=== PATIENT | female | born 1980 | race Caucasian/White ===

== ENCOUNTER 2020-02-18 09:03 | Emergency (ER) | payer BC, SELFPAY ==
[2020-02-18 09:07] VITALS: BP 135/82; PULSE 73; RESP 16; TEMP 36.6; O2SAT 100; BMI 24.7
--- NOTE | 2020-02-18 09:10 | W.ED.GENADLT ---
HPI - General Adult General: Chief complaint: General Medical Stated complaint: HIGH BP Time Seen by Provider: 02/18/20 09:10 Source: patient Mode of arrival: ambulatory Limitations: no limitations History of Present Illness: HPI narrative: Patient is a 39-year-old female who presents to ED today for evaluation of not feeling right . Patient tells me earlier this morning around 8 AM when she arrived to work she became dizzy and lightheaded and states she felt nauseous. She had one episode of vomiting. She tells me I just did not feel good . She does not seem to be able to elaborate on her symptoms much further than this and often responds I do not know to further questioning. She does tell me she has some mild pain to her epigastric region. She does not complain of chest pain, shortness of breath, or difficulty breathing. She does tell me she has had a previous RI 2 years ago. Her public affairs officer is Dr. El. She states upon arrival the dizziness and lightheadedness has subsided. Denies fevers, chills, body aches, headache, visual changes. Denies numbness, tingling, weakness to her extremities, facial droop, slurred speech. Onset (ago): hour(s) Associated symptoms: Reports nausea and vomiting (x 1); Deny chest pain, confusion, dyspnea, headache(s), malaise, rash, palpitations or syncope Review of Systems Const: Denies: fever(s), chills, body aches, change in appetite, change in weight, fatigue or malaise Eyes: Denies: change in vision, blurry vision, photophobia, floaters or seeing flashes Card: Denies: chest pain, palpitations, irregular heart rhythm, edema, swelling of feet/ankles, lightheadedness, syncope, pre-syncope, dyspnea on exertion, orthopnea, leg pain with exertion or acrocyanosis Resp: Denies: dyspnea, productive cough, non-productive cough, pain on inspiration, change in phlegm color, hemoptysis or chest congestion GI: Reports: abdominal pain, nausea and vomiting (x 1); Denies: diarrhea : Denies: flank pain, difficulty voiding, dysuria, urinary frequency, urinary urgency or urinary hesitancy Musc: Denies: neck pain, back pain, extremity pain, extremity swelling, joint pain or joint swelling Skin/Breast: Denies: rash Neuro: Reports: dizziness (subsided now); Denies: headache(s), numbness in extremities, weakness in extremities, sensory changes, lack of coordination, difficulty walking, vertigo, confusion, Slurred speech present or difficulty communicating thoughts [facility] ED PFSH: Medical History (Updated 02/18/20 @ 12:25 by NEVA Borges) Hyperlipidemia Surgical History (Updated 09/28/19 @ 17:47 by Raciel El MD) S/P coronary artery stent placement Family History Other Hypertension Myocardial infarction PAD (peripheral artery disease) Social History (Updated 02/18/20 @ 09:11 by Ish Brennan RN) Smoking and tobacco status: former smoker Alcohol intake: never Physical Exam Const: COMMON NORMALS: no acute distress, average body habitus, patient oriented x3, no limitations, healthy appearing, alert and well nourished ORIENTATION/CONSCIOUSNESS: Yes oriented to person, Yes oriented to place and Yes oriented to time HENMT: COMMON NORMALS: normocephalic and atraumatic HEAD & SCALP: normocephalic and atraumatic Neck/C-Spine: COMMON NORMALS: full ROM, no lymphadenopathy, supple and no meningeal signs Chest: COMMONS NORMALS: normal inspection of the chest and normal palpation of entire chest wall Resp: COMMON NORMALS: normal respiratory effort and clear to auscultation bilaterally AUSCULTATION: clear to auscultation bilaterally Cardio: COMMON NORMALS: regular rate and regular rhythm RATE: regular rate RHYTHM: regular rhythm GI: COMMON NORMALS: Normal to inspection, nondistended, normoactive bowel sounds present, Soft to palpation, non-tender, No hepatosplenomegaly present and no masses PALPATION: Yes Soft to palpation and Yes No hepatosplenomegaly present : COMMON NORMALS: Yes no CVA tenderness BLADDER/KIDNEY EXAM: Yes no CVA tenderness Back/Pelvis: COMMON NORMALS: no CVA tenderness and thoracic and lumbar spine normal to inspection Extremity: COMMON NORMALS: normal to inspection Neuro: COMMON NORMALS: patient oriented x3 SENSORIUM/ORIENTATION: Yes alert, Yes oriented to person, Yes oriented to place and Yes oriented to time MENINGEAL SIGNS: Yes no meningeal signs Skin: COMMON NORMALS: no rashes or lesions noted GENERAL SKIN EXAM: no rashes or lesions noted Course Vital Signs: Vital signs: Vital Signs Temperature 97.8 F 02/18/20 09:07 Pulse Rate 66 02/18/20 12:38 Respiratory Rate 16 02/18/20 12:38 Blood Pressure 119/64 02/18/20 12:38 Pulse Oximetry 100 02/18/20 12:38 MDM - General Adult MDM Narrative: Medical decision making narrative: Patient's vitals are completely stable and have been throughout her stay. Labs are non-concerning at this time. She has initial troponin of 6 with a delta of 0. Her EKGs show no ischemic changes. CXR is normal. She has a heart score of 3. Patient has seen her public affairs officer for almost identical symptoms previously. Recommend at this time that she follow-up with him as soon as possible for reevaluation. Strict return to ED precautions given. Lab Data: Labs: Lab Results 02/18/20 02/18/20 02/18/20 Range/Units 09:30 09:30 09:30 WBC 9.7 (4.0-10.0) 10^3/ uL RBC 4.66 (4.1-5.3) 10^6/u L Hgb 13.2 (11.5-15.3) g/dL Hct 40.7 (37.0-47.0) % MCV 87.3 (81-99) fL MCH 28.3 (28.0-34.0) pg MCHC 32.4 (30.0-36.0) g/dL RDW 12.3 (12.1-15.1) % Plt Count 312 (130-400) 10^3/c mm MPV 9.8 (7.4-10.4) fL Neut % (Auto) 69.1 % Lymph % (Auto) 22.9 % [place] % (Auto) 6.3 % Eos % (Auto) 0.9 % Baso % (Auto) 0.4 % Neut # (Auto) 6.68 (1.8-7.7) 10^3/u L Lymph # (Auto) 2.2 (0.8-4.8) 10^3/u L [place] # (Auto) 0.6 (0.2-0.9) 10^3/u L Eos # (Auto) 0.1 (0.0-0.8) 10^3/u L Baso # (Auto) 0.0 (0.0-0.1) 10^3/u L Nucleated RBC % (a uto) 0 % Nucleated RBCs # 0.0 /100WBC Sodium 138 (136-145) mmol/L Potassium 4.3 (3.5-5.1) mmol/L Chloride 104 (98-107) mmol/L Carbon Dioxide 24 (22-29) mmol/L Anion Gap 14.3 (5-19) BUN 16 (6-20) mg/dL Creatinine 0.8 (0.5-0.9) mg/dL GFR Calculation 79.4 L (90-130) mL/min Glucose 108 (65-115) mg/dL Calculated Osmolal ity 283 L (285-295) mOsm/k g Calcium 9.0 (8.5-10.5) mg/dL Total Bilirubin 0.3 (0.15-1.2) mg/dL AST 16 (0-32) U/L ALT 17 (0-33) U/L Alkaline Phosphata se 52 (35-105) IU/L Troponin T Baselin e 6 (0-10) ng/L Troponin T [address] [place] (0-10) ng/L Delta Troponin T (0-10) ABS# Total Protein 7.5 (6.6-8.7) g/dL Albumin 4.7 (3.5-5.2) g/dL Globulin 2.8 (1.3-4.6) g/dL HCG, Qual (Negative) 02/18/20 02/18/20 Range/Units 09:30 11:40 WBC (4.0-10.0) 10^3/ uL RBC (4.1-5.3) 10^6/u L Hgb (11.5-15.3) g/dL Hct (37.0-47.0) % MCV (81-99) fL MCH (28.0-34.0) pg MCHC (30.0-36.0) g/dL RDW (12.1-15.1) % Plt Count (130-400) 10^3/c mm MPV (7.4-10.4) fL Neut % (Auto) % Lymph % (Auto) % [place] % (Auto) % Eos % (Auto) % Baso % (Auto) % Neut # (Auto) (1.8-7.7) 10^3/u L Lymph # (Auto) (0.8-4.8) 10^3/u L [place] # (Auto) (0.2-0.9) 10^3/u L Eos # (Auto) (0.0-0.8) 10^3/u L Baso # (Auto) (0.0-0.1) 10^3/u L Nucleated RBC % (a uto) % Nucleated RBCs # /100WBC Sodium (136-145) mmol/L Potassium (3.5-5.1) mmol/L Chloride (98-107) mmol/L Carbon Dioxide (22-29) mmol/L Anion Gap (5-19) BUN (6-20) mg/dL Creatinine (0.5-0.9) mg/dL GFR Calculation (90-130) mL/min Glucose (65-115) mg/dL Calculated Osmolal ity (285-295) mOsm/k g Calcium (8.5-10.5) mg/dL Total Bilirubin (0.15-1.2) mg/dL AST (0-32) U/L ALT (0-33) U/L Alkaline Phosphata se (35-105) IU/L Troponin T Baselin e (0-10) ng/L Troponin T [address] [place] 6.00 (0-10) ng/L Delta Troponin T 0 (0-10) ABS# Total Protein (6.6-8.7) g/dL Albumin (3.5-5.2) g/dL Globulin (1.3-4.6) g/dL HCG, Qual Negative (Negative) Imaging Data^: CXR: Radiologist's impression: [address] [address] XRay Report Signed Patient: Juliane Ma Unit #: [id number] : 1980 Age/Sex: 39 / F ADM Date: 02/18/20 Loc: ER Room/Bed: Attending Dr: Ordering Provider/Ordering MD: Esperanza Field Date of Service: 02/18/20 Procedure(s): XR chest 1V portable [id number] Accession Number(s): [id number] Report Number: [id number] WS: [id number] PORTABLE CHEST HISTORY: chest pain COMPARISON: 07/29/2017 Lungs are clear and well expanded. No pleural effusion or pneumothorax. Cardiac size: Normal. Mediastinum/Aorta: Normal mediastinum. No osseous abnormality seen. XR/XR chest 1V portable [id number] IMPRESSION: Unremarkable portable chest. Dictated By: Tamie Sena DO Signed By: Tamie Sena DO Signed Date/Time: 02/18/20939 DD/ 9 EKG Data^: EKG 1: EKG interpretation date: 02/18/20 EKG interpretation time: 09:24 Interpretation: Sinus rhythm Rate [address] elevation or depression changes noted Computer generated interpretation: Chest X-Ray 02/18/20 09:23 IMPRESSION: Unremarkable portable chest. EKG 2: EKG interpretation date: 02/18/20 EKG interpretation time: 11:02 Interpretation: Sinus rhythm Rate [address] elevation or depression changes noted No changes from EKG done earlier on same visit Computer generated interpretation: Chest X-Ray 02/18/20 09:23 IMPRESSION: Unremarkable portable chest. Discharge Plan Discharge Patient Disposition: Home Clinical Impression: General ill feeling Condition: Stable Prescriptions: No Action cetirizine [Zyrtec] 10 mg tablet 10 mg PO DAILY RF: 0 aspirin [Adult Low Dose Aspirin] 81 mg tablet,delayed release (DR/EC) 81 mg PO DAILY RF: 0 nitroglycerin [Nitrostat] 0.4 mg tablet, sublingual 0.4 mg SUBLINGUAL Q5M PRN (Reason: Chest Pain) RF: 0 clopidogrel 75 mg tablet 75 mg PO DAILY 90 Days Qty: 90 RF: 3 ezetimibe [Zetia] 10 mg tablet 10 mg PO DAILY Qty: 90 RF: 3 Discharge Orders: Discharge Order (Routine); Ordered 02/18/20 Ordered By: Esperanza Field Activity Restrictions/Additional Instructions: As discussed your labs including initial and repeat troponins/cardiac enzymes, EKG, and chest x-ray were normal today. Please follow up with your public affairs officer as soon as possible if symptoms persist. Return to the emergency department for worsening pain, chest pain, shortness of breath, difficulty breathing, fevers, severe dizziness, passing out, or any other concerns you may have. I hope you begin to feel better soon. Discharge Date/Time: 02/18/20 12:41 Coding Level of Care Code ED Human Development Professor for Paula Leslie Exam Comprehensive
[2020-02-18 09:15] VITALS: BP 135/82; RESP 75; O2SAT 99
--- NOTE | 2020-02-18 09:23 | ECG_ITS ---
[facility] Test Date: 2020-02-18 Pat Name: Juliane Ma Department: Room: Gender: Female Devil Dog: : 1980 Requested By: Esperanza Field Order Number: [id number] Arambula MD: Junior De Jesus M.D. Measurements Intervals [place] Rate: 73 P: 17 NC: 140 QRS: 79 QRSD: 87 T: 59 QT: 358 QTc: 395 Interpretive Statements SINUS RHYTHM Compared to ECG 07/30/2017 06:38:01 Sinus bradycardia no longer present Ventricular premature complex(es) no longer present T-wave abnormality no longer present Possible ischemia no longer present Electronically Signed On 02-18-2020 16:07:08 CDT by Junior De Jesus M.D. [id number] f
--- NOTE | 2020-02-18 09:23 | XR_ITS ---
WS: [id number] PORTABLE CHEST HISTORY: chest pain COMPARISON: 07/29/2017 Lungs are clear and well expanded. No pleural effusion or pneumothorax. Cardiac size: Normal. Mediastinum/Aorta: Normal mediastinum. No osseous abnormality seen. XR/XR chest 1V portable [id number] IMPRESSION: Unremarkable portable chest.
[2020-02-18 09:32] VITALS: BP 135/83; PULSE 74; RESP 18; O2SAT 96
[2020-02-18 09:40] LABS: Basophils % 0.4 %; Eosinophils # 0.1 10^3/uL (0.0-0.8); Eosinophils % 0.9 %; Hematocrit 40.7 % (37.0-47.0); Hemoglobin 13.2 g/dL (11.5-15.3); Lymphocytes # 2.2 10^3/uL (0.8-4.8); Lymphocytes % 22.9 %; Mean Corpuscular HGB Conc 32.4 g/dL (30.0-36.0); Mean Corpuscular Hemoglobin 28.3 pg (28.0-34.0); Mean Corpuscular Volume 87.3 fL (81-99); Mean Platelet Volume 9.8 fL (7.4-10.4); Monocytes # 0.6 10^3/uL (0.2-0.9); Monocytes % 6.3 %; Neutrophils # 6.68 10^3/uL (1.8-7.7); Neutrophils % 69.1 %; Nucleated Red Blood Cells % 0 %; Platelet Count 312 10^3/cmm (130-400); Red Blood Count 4.66 10^6/uL (4.1-5.3); Red Cell Distribution Width 12.3 % (12.1-15.1); White Blood Count 9.7 10^3/uL (4.0-10.0)
[2020-02-18 10:00] LABS: Alanine Aminotransferase 17 U/L (0-33); Albumin Level 4.7 g/dL (3.5-5.2); Alkaline Phosphatase 52 IU/L (35-105); Anion Gap 14.3 (5-19); Aspartate Amino Transferase 16 U/L (0-32); Blood Urea Nitrogen 16 mg/dL (6-20); Carbon Dioxide 24 mmol/L (22-29); Chloride 104 mmol/L (98-107); Globulin 2.8 g/dL (1.3-4.6); Glomerular Filtration Rate 79.4 mL/min (90-130); Glucose 108 mg/dL (65-115); Osmolality Calculated 283 mOsm/kg (285-295); Potassium 4.3 mmol/L (3.5-5.1); Sodium 138 mmol/L (136-145); Total Bilirubin 0.3 mg/dL (0.15-1.2); Total Protein 7.5 g/dL (6.6-8.7); Troponin(5th) Baseline 6 ng/L (0-10)
[2020-02-18 10:09] LABS: HCG, Serum Qual Negative (Negative)
[2020-02-18] MEDS: lidocaine 2% viscous 15 ML, aluminum-mag hydrox-simethicon 30 ML, sucralfate oral liq 1 GM PO (10:53)
[2020-02-18] MEDS: ondansetron 2 mg/ML SDV 2 mL 4 MG IVP (10:53)
[2020-02-18] MEDS: sodium chloride 0.9% 1,000 ML 999 ML IV (10:53)
--- NOTE | 2020-02-18 11:23 | ECG_ITS ---
[facility] Test Date: 2020-02-18 Pat Name: Juliane Ma Department: Room: Gender: Female Slinger Sequins: : 1980 Requested By: Esperanza Field Order Number: [id number] Arambula MD: Junior De Jesus M.D. Measurements Intervals [place] Rate: 67 P: 4 VT: 147 QRS: 73 QRSD: 88 T: 54 QT: 376 QTc: 399 Interpretive Statements SINUS RHYTHM Compared to ECG 02/18/2020 09:24:54 No significant changes Electronically Signed On 02-18-2020 16:26:49 CDT by Junior De Jesus M.D. [id number] f
[2020-02-18 11:25] VITALS: RESP 18
[2020-02-18] MEDS: morphine 4 mg/mL SDV 1 mL IVP (11:25)
[2020-02-18 11:28] VITALS: BP 121/82; PULSE 74; RESP 18; O2SAT 96
[2020-02-18 12:13] LABS: Troponin 5 2HR Delta 0 ABS# (0-10)
[2020-02-18 12:38] VITALS: BP 119/64; PULSE 66; RESP 16; O2SAT 100
== END 2020-02-18 12:41 | disposition home or self-care (01) ==
PROVIDERS: Emergency Provider Physician Assistant
DX: I10 Essential (primary) hypertension (principal); Z79.82 Long term (current) use of aspirin; Z79.02 Long term (current) use of antithrombotics/antiplatelets; E78.5 Hyperlipidemia, unspecified; Z87.891 Personal history of nicotine dependence
CPT/HCPCS: 12345; 36415; 71045; 80053; 84484; 84703; 85025; 93005; 96361; 96374; 96375; 99283; 99284; J2270; J2405; J7030

== ENCOUNTER 2021-07-17 08:06 | Outpatient (CLI) | payer BC, SELFPAY ==
[2021-07-17 08:30] VITALS: BMI 27.1
--- NOTE | 2021-07-17 08:34 | ECG_ITS ---
[facility] Test Date: 2021-07-17 Pat Name: Juliane Ma Department: Room: Gender: Female Medical Reception: : 1980 Requested By: Raciel El Order Number: [id number] Reading MD: RACIEL EL Interpretive Statements NAME OF STUDY: EXERCISE SESTAMIBI STRESS TEST INDICATION: Sob/cp, EXERCISE DATA: The patient was exercised by Sha protocol. Baseline heart rate was 84 beats per minute. Baseline blood pressure was 137/77 millimeters of mercury. Target heart rate was 178 beats per minute. Maximum heart rate achieved was 165, which was 92 % of the target heart rate. Maximum blood pressure was 188/88 millimeters of mercury. Total exercise time was 8 minutes 8 seconds. Maximum METs achieved was 10.2, maximum VO2 was 35.7. The reason for ending the test was maximum effort achieved. The patient complained of shortness of breath during the stress test, which then resolved at the end of the test. ELECTROCARDIOGRAM: BASELINE: Sinus rhythm, normal axis, no significant ST-T changes at the baseline noted. EXERCISE: At the peak exercise level, no significant ST-T changes suggestive of ischemia noted. RECOVERY: During the recovery period, heart rate dropped appropriately. No significant ST-T changes in the recovery suggestive of ischemia noted. CONCLUSION: 1. Exercise capacity good. 2. Heart rate response was appropriate. 3. Blood pressure response was appropriate. 4. Symptoms not suggestive of ischemia. 5. Electrocardiogram portion of the stress test was not suggestive of ischemia. 6. Nuclear scan will be documented separately. Electronically Signed On 07-20-2021 15:30:44 DIE ASSEMBLER by RACIEL EL [id number]
--- NOTE | 2021-07-17 08:35 | NMCV_ITS ---
NM spencer perf SPECT r/s* [id number] Juliane Ma Age: 41 Gender: F : 1980 Exam Date: 07/17/2021 08:35 Ordering Phys: Raciel El MD ([email or web address]) Technologist: DAYA Ash Exam Location: [facility] Indications: SHORTNESS OF BREATH STRESS TEST Please see separate stress test report in Ephiphany for full findings IMAGE PROTOCOL Rest/Stress 1 Exercise Day Radiopharmaceutical Dose (mCi) Administration Site Administered by Rest: Tc-99m 10.7 IV DAYA Wheeler Sestamiasim Stress:Tc-99m 32.5 IV DAYA Wheeler Sestamiasim Rest: 17-Jul-2021 60 Discovery 630 Stress: 17-Jul-2021 30 Discovery 630 Radiopharmaceutical was injected at 92 % maximum heart rate. Images obtained in supine and prone position. SPECT RESULTS Technical Quality: Excellent Raw Data Analysis: Normal Image Corrections: No attenuation or motion correction applied Summed Stress Score: 0 Summed Rest Score: 1 Summed Difference Score: 0 PERFUSION FINDINGS SPECT images demonstrate homogeneous tracer distribution throughout the myocardium. FUNCTIONAL RESULTS (calculated via Gated SPECT) Stress Image LV EF (%): 71 Stress EDV (mL):89 TID: 1.06 Stress ESV (mL):26 Rest Image LV EF (%): 71 FUNCTIONAL FINDINGS: There is normal left ventricular systolic function. IMPRESSIONS Myocardial perfusion imaging is normal. EKG segment will be documented separately. Raciel lE MD (Electronically Signed) Final Date: 17 July 2021 19:08 S
[2021-07-17 10:08] VITALS: BP 127/88; PULSE 94
== END 2021-07-17 08:07 | disposition home or self-care (01) ==
LOC: CDL 08:07
PROVIDERS: Visit Provider Internal Medicine Cardiovascular Disease
DX: R06.02 Shortness of breath (principal); R07.9 Chest pain, unspecified
CPT/HCPCS: 78452; 93017; A9500

== ENCOUNTER 2021-07-19 07:53 | Outpatient (CLI) | payer BC, SELFPAY ==
--- NOTE | 2021-07-19 08:08 | USCV_ITS ---
Juliane Ma Age: 41 Gender: F : 1980 Exam Date: 07/19/2021 08:23 Ordering Phys: Raciel El MD ([email or web address]) Technologist: SAUNDRA [place] [facility] [place]: CHEST PAIN BP: 110 / 64 HR: 71 Rhythm: Sinus Technical Quality: Adequate MEASUREMENTS (Male / Female) Normal Values 2D ECHO LV Diastolic Diameter PLAX 4.2 cm 4.2 - 5.9 / 3.9 - 5.3 cm LV Systolic Diameter PLAX 2.7 cm IVS Diastolic Thickness 1.2 cm 0.6 - 1.0 / 0.6 - 0.9 cm IVS Systolic Thickness 1.6 cm LVPW Diastolic Thickness 1.0 cm 0.6 - 1.0 / 0.6 - 0.9 cm LVPW Systolic Thickness 1.5 cm RV Chamber Size 3.0 cm LVOT Diameter 2.0 cm LV Ejection Fraction 2D Teich 64.0 % LV Ejection Fraction MOD 2C 71.2 % LV Ejection Fraction 2C AL 71.3 % LA Diameter 2.9 cm LA Width 3.3 cm LA Height 3.2 cm RA Width 3.3 cm RA Height 3.2 cm Aorta at Sinotubular Diameter 2.5 cm M-MODE Aortic Annulus Diameter 2.5 cm LA Ao Ratio MM 1.2 MV E Point Septal Separation 0.3 cm DOPPLER AV Peak Velocity 134.0 cm/s LVOT Peak Velocity 100.0 cm/s AV Area Cont Eq vti 2.4 cm squared AV Area Cont Eq pk 2.4 cm squared MV Area PHT 5.0 cm squared Mitral E to A Ratio 1.2 MV E' Velocity 55.0 cm/s Mitral E to MV E' Ratio 7.6 Mitral E to LV E' Lateral Ratio 7.2 Mitral E to LV E' Septal Ratio 8.1 TR Peak Velocity 290.7 cm/s TR Peak Gradient 33.8 mmHg TV Peak E Velocity 52.0 cm/s Right Atrial Pressure 3.0 mmHg Pulmonary Artery Systolic Pressu 36.8 mmHg PV Peak Velocity 79.0 cm/s FINDINGS Left Ventricle Normal left ventricular size, systolic function and wall thickness, with no regional wall motion abnormalities. Left ventricular ejection fraction is estimated at 65 %. Normal diastolic function. Right Ventricle Normal right ventricular size and systolic function. RVSP could not be calculated due to incomplete tricuspid regurgitation velocity profile. Right Atrium Normal right atrial size. Right atrial pressure estimated at 3 mmHg. Left Atrium Normal left atrial size. Mitral Valve Structurally normal mitral valve. No mitral valve stenosis. Trace mitral valve regurgitation. Aortic Valve Structurally normal trileaflet aortic valve. No aortic valve stenosis. No aortic valve regurgitation. Tricuspid Valve Structurally normal tricuspid valve. No tricuspid valve stenosis. Trace tricuspid valve regurgitation. Pulmonic Valve Structurally normal pulmonic valve. No pulmonary valve stenosis. No pulmonary valve regurgitation. Pericardium No pericardial effusion. Aorta Normal size aortic root and proximal ascending aorta. Normal- sized inferior vena cava with greater than 50% respiratory variation. CONCLUSIONS 1. Normal left ventricular size, systolic function and wall thickness, with no regional wall motion abnormalities. Left ventricular ejection fraction is estimated at 65 %. Normal diastolic function. 2. Normal right ventricular size and systolic function. 3. No significant valvular abnormality. 4. No significant change when compared to previous echocardiogram dated 07/29/2017. Salome Plata MD (Electronically Signed) Final Date: 19 July 2021 12:46 S
== END 2021-07-19 07:54 | disposition home or self-care (01) ==
LOC: RAD 08:01
PROVIDERS: Visit Provider Internal Medicine Cardiovascular Disease
DX: R06.02 Shortness of breath (principal); R07.9 Chest pain, unspecified
CPT/HCPCS: 93306

== ENCOUNTER → 2021-09-14 16:05 | Outpatient (BNVA) | payer BC, SELFPAY | PROVIDERS: Visit Provider Internal Medicine Cardiovascular Disease | DX: I25.2 Old myocardial infarction (principal); I10 Essential (primary) hypertension; E78.49 Other hyperlipidemia | CPT/HCPCS: 36415; 80053; 80061; 85025 ==

== ENCOUNTER 2022-01-16 14:22 | Outpatient (CLI) | payer BC, SELFPAY ==
--- NOTE | 2022-01-16 14:33 | MM_ITS ---
WS: [id number] BILATERAL 3D TOMOSYNTHESIS DIGITAL SCREENING MAMMOGRAPHY WITH CAD CLINICAL INFORMATION: SCREENING HISTORY: Screening mammogram. No current complaints. COMPARISON: None. TECHNIQUE: Bilateral CC and MLO views. FINDINGS: The breasts are composed of heterogeneous fibroglandular density tissue, which can limit the detectio n of small underlying mass lesions. 6 mm ovoid density central RIGHT breast along the posterior nippl e line. Recommend spot diagnostic mammography and ultrasound in further evaluation if persistent. Additional asymmetric density inner LEFT breast best seen on the cc view. Recommend spot compression views and ultrasound for further evaluation if persistent. MM/[place] [id number] IMPRESSION: BI-RADS: 0-Incomplete: Need additional imaging evaluation FOLLOW UP: Need Additional Imaging Recommend bilateral diagnostic mammography of the above-described asymmetries a nd ultrasound if persistent.
== END 2022-01-16 14:23 | disposition home or self-care (01) ==
PROVIDERS: PCP Family Medicine; Visit Provider Family Medicine
DX: Z12.31 Encounter for screening mammogram for malignant neoplasm of breast (principal)
CPT/HCPCS: 77063; 77067

== ENCOUNTER 2022-01-26 10:47 | Outpatient (CLI) | payer BC, SELFPAY ==
--- NOTE | 2022-01-26 10:57 | MM_ITS ---
WS: [id number] BILATERAL 3D TOMOSYNTHESIS DIGITAL DIAGNOSTIC MAMMOGRAPHY WITH CAD CLINICAL INFORMATION: ABNORMAL MAMMO COMPARISON: January 16, 2022 TECHNIQUE: Bilateral CC, MLO, and ML views. FINDINGS: Scattered fibroglandular densities bilaterally. Mammogram is unchanged in appearance compared to prev ious. Stable 6 mm ovoid density central RIGHT breast along the posterior nipple line. Additional asym metric density inner LEFT breast partially compresses out on the spot compression views. Ultrasound d escribed below. ULTRASOUND BREAST BILATERAL TECHNIQUE: Ultrasound bilateral breast focused area of concern. CLINICAL INFORMATION: ABNORMAL MAMMO COMPARISON: None. FINDINGS: RIGHT BREAST: Ultrasound RIGHT breast 2:00 and 10:00 positions. No suspicious findings in these areas . No cystic or solid lesions. Dense underlying parenchymal tissue. No lesions to target for biopsy. LEFT BREAST: Ultrasound LEFT breast 9:00 position. Small ovoid isoechoic lesion measuring 7.2 x 4.6 x 2.7 mm. This is probably benign and recommend 6 month follow-up to confirm stability. This may repre sent a small lymph node. No other suspicious findings. MM/[place] [id number] IMPRESSION: BI-RADS: 3-Probably Benign FOLLOW UP: 6 Month Follow-up Recommend 6 month follow-up ultrasound LEFT breast at the 9:00 position.
== END 2022-01-26 10:48 | disposition home or self-care (01) ==
LOC: RAD 10:47
PROVIDERS: PCP Family Medicine; Visit Provider Family Medicine
DX: R92.8 Other abnormal and inconclusive findings on diagnostic imaging of breast (principal); N63.25 Unspecified lump in the left breast, overlapping quadrants
CPT/HCPCS: 76642; 77062

== ENCOUNTER 2022-02-11 04:14 | Emergency (ER) | payer BC, SELFPAY ==
[2022-02-11] VITALS (11 sets, daily range): BP systolic 127–158; BP diastolic 79–94; PULSE 56–77; RESP 12–22; TEMP 36.8; O2SAT 98–100; BMI 24.5
--- NOTE | 2022-02-11 04:25 | ECG_ITS ---
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 Measurements Intervals [place] Rate: 72 P: 11 SD: 143 QRS: 83 QRSD: 83 T: 70 QT: 354 QTc: 388 Interpretive Statements SINUS RHYTHM Compared to ECG 02/18/2020 11:02:26 No significant changes Electronically Signed On 02-11-2022 8:25:44 CDT by Truong Jensen M.D. [email or web address] of [email or web address], [email or web address].[facility].[employer]/[id number]
--- NOTE | 2022-02-11 04:45 | XRR_ITS ---
PROCEDURE INFORMATION: Exam: XR Chest Exam date and time: 02/11/2022 4:49 AM Age: 41 years old Clinical indication: Chest wall pain; Additional info: Cp TECHNIQUE: Imaging protocol: Radiologic exam of the chest. Views: 1 view. COMPARISON: CR XR chest 1V portable [id number] 02/18/2020 9:50 AM FINDINGS: Lungs: There are normal lung volumes without interstitial or airspace opacities. Pleural spaces: There are no pleural effusions or pneumothorax. Heart/Mediastinum: The heart size is normal. The mediastinal contour is normal. The trachea is in the midline. Bones/joints: No acute abnormalities. Soft tissues: Multiple external densities are seen overlying the chest, limiting assessment. XR/XR chest 1V portable [id number] IMPRESSION: No chest radiographic evidence of acute cardiopulmonary disease.
[2022-02-11] MEDS: ondansetron 2 mg/ML SDV 2 mL 4 MG IVP ×2 (04:57→12:22)
[2022-02-11] MEDS: morphine 4 mg/mL SDV 1 mL IVP (04:57)
[2022-02-11 04:59] LABS: Basophils % 0.2 %; Eosinophils # 0.1 10^3/uL (0.0-0.8); Eosinophils % 1.1 %; Hematocrit 35.9 % (37.0-47.0); Hemoglobin 11.8 g/dL (11.5-15.3); Lymphocytes # 1.7 10^3/uL (0.8-4.8); Lymphocytes % 14.2 %; Mean Corpuscular HGB Conc 32.9 g/dL (30.0-36.0); Mean Corpuscular Hemoglobin 29.2 pg (28.0-34.0); Mean Corpuscular Volume 88.9 fl (81-99); Mean Platelet Volume 9.6 fL (7.4-10.4); Monocytes # 0.7 10^3/uL (0.2-0.9); Monocytes % 5.7 %; Neutrophils # 9.13 10^3/uL (1.8-7.7); Neutrophils % 78.4 %; Nucleated Red Blood Cells % 0 %; Platelet Count 376 10^3/cmm (130-400); Red Blood Count 4.04 10^6/uL (4.1-5.3); Red Cell Distribution Width 12.8 % (12.1-15.1); White Blood Count 11.6 10^3/uL (4.0-10.0)
[2022-02-11 05:07] LABS: D Dimer 3.54 ug/mIFEU (0-0.59)
--- NOTE | 2022-02-11 05:10 | CTR_ITS ---
PROCEDURE INFORMATION: Exam: CTA Chest With Contrast Exam date and time: 02/11/2022 5:36 AM Age: 41 years old Clinical indication: Abdominal pain; Chest wall pain; Prior surgery; Surgery date: 3-7 days post-operative; Surgery type: Hysterectomy 6days ago, cardiac stent over 6 months; Additional info: Chest, back abd pain. Post op hysterectomy TECHNIQUE: Imaging protocol: Computed tomographic angiography of the chest with contrast. 3D rendering (Not supervised by radiologist): MIP and/or 3D reconstructed images were created by the technologist. Radiation optimization: All CT scans at this facility use at least one of these dose optimization techniques: automated exposure control; mA and/or kV adjustment per patient size (includes targeted exams where dose is matched to clinical indication); or iterative reconstruction. Contrast material: OMNI 350; Contrast volume: 95 ml; Contrast route: INTRAVENOUS (IV); COMPARISON: CR (CHEST, ) 02/11/2022 4:49 AM RADIATION DOSE METRICS: Total DLP (mGy-cm): 775.15 FINDINGS: Pulmonary arteries: No CT evidence for segmental pulmonary emboli. The main pulmonary arteries and outflow trunk are unremarkable. Aorta: No thoracic aortic aneurysm. No thoracic aortic dissection. Trachea: The central airway is normal. Lungs: There are normal lung volumes. Minimal dependent atelectasis is seen with mild bilateral lower lobe posterior basilar atelectasis. No regions of consolidation or interstitial lung disease. Pleural spaces: No pneumothorax. No pleural effusion. Heart: The heart size is within normal limits. The RV/LV ratio is normal (no CT evidence of RV strain). There is no pericardial effusion. No coronary arterial atherosclerotic vascular calcifications. Lymph nodes: Some subcentimeter prevascular and pretracheal lymph nodes are seen. Enlarged bilateral hilar and subcarinal lymph nodes are seen, the largest measuring 1 x 1 cm. Bones/joints: No acute osseous abnormalities. Soft tissues: Unremarkable. PROCEDURE INFORMATION: Exam: CT Abdomen And Pelvis With Contrast Exam date and time: 02/11/2022 5:36 AM Age: 41 years old Clinical indication: Abdominal pain; Chest wall pain; Prior surgery; Surgery date: 3-7 days post-operative; Surgery type: Hysterectomy 6days ago, cardiac stent over 6 months; Additional info: Chest, back abd pain. Post op hysterectomy TECHNIQUE: Imaging protocol: Computed tomography of the abdomen and pelvis with contrast. Radiation optimization: All CT scans at this facility use at least one of these dose optimization techniques: automated exposure control; mA and/or kV adjustment per patient size (includes targeted exams where dose is matched to clinical indication); or iterative reconstruction. Contrast material: OMNI 350; Contrast volume: 95 ml; Contrast route: INTRAVENOUS (IV); COMPARISON: CR (CHEST, ) 02/11/2022 4:49 AM RADIATION DOSE METRICS: Total DLP (mGy-cm): 775.15 FINDINGS: Liver: Normal enhancement. No mass. Gallbladder and bile ducts: Mildly distended gallbladder. No calcified stones. No biliary ductal dilatation. Pancreas: Normal contour and enhancement. No ductal dilation. Spleen: Normal enhancement. No splenomegaly. Adrenal glands: Normal contour. No mass. Kidneys and ureters: Left kidney lower pole simple 7 x 7 mm cyst is incidentally seen. No further follow-up is necessary per ACR recommendations. No contour deforming renal masses or hydronephrosis. Stomach and bowel: The non-contrast opacified stomach is not well distended with relative gastric fold prominence. Assessment is limited. The noncontrast opacified small bowel loops appear unremarkable. The noncontrast opacified colonic loops appear unremarkable.The lack of orally administered contrast material limits bowel assessment. Appendix: No evidence of appendicitis. Intraperitoneal space: No abdominal ascites. No pneumoperitoneum.There are numerous benign phleboliths in the pelvis. Vasculature: No abdominal aortic aneurysm. Inferior vena cava and portal vein appear unremarkable. Lymph nodes: No enlarged lymph nodes. Urinary bladder: No bladder wall thickening or debris. Reproductive: Status post hysterectomy 6 days ago. Heterogeneous attenuation fluid is seen in the posterior pelvis with some septations and denser regions. This region measures approximately 9 x 5.6 x 11.8 cm. This may represent a postsurgical fluid collection/evolving hematoma. Infection cannot be excluded. Recommend correlation with clinical findings. The ovaries are not discretely seen. Recommend correlation with surgical history. Bones/joints: No acute osseous abnormality seen. Soft tissues: Unremarkable. CT/CT angio chest w abd pel w con IMPRESSION: 1. No CTA evidence of pulmonary embolism, thoracic aortic aneurysm or thoracic aortic dissection. 2. Minimal dependent atelectasis with mild bilateral lower lobe posterior basilar atelectasis. No CT evidence of pneumonia. 3. Nonspecific enlarged mediastinal lymph nodes. IMPRESSION: Status post hysterectomy 6 days ago. Heterogeneous attenuation fluid seen in the posterior pelvis with some septations and denser regions. This region measures approximately 9 x 5.6 x 11.8 cm. This may represent a postsurgical fluid collection/evolving hematoma. Infection cannot be excluded. Recommend correlation with clinical findings. COMMENTS: Consistent with the [employer] [employer]'s Incidental Findings Committee white paper (J Am Quinton Radiol 2018): Any incidental renal lesion less than 1 cm or classified as too small to characterize, or any incidental cystic renal lesion characterized as simple-appearing, is likely benign. No follow-up imaging is recommended for these lesions per consensus recommendations based on imaging criteria.
[2022-02-11 05:18] LABS: Troponin(5th) Baseline 6 ng/L (0-10)
[2022-02-11 05:22] LABS: Alanine Aminotransferase 28 U/L (0-33); Albumin Level 3.8 g/dL (3.5-5.2); Alkaline Phosphatase 88 U/L (35-105); Anion Gap 17.7 (5-19); Aspartate Amino Transferase 26 U/L (0-32); Blood Urea Nitrogen 7 mg/dL (6-20); Calcium 9.5 mg/dL (8.5-10.5); Carbon Dioxide 24 mmol/L (22-29); Chloride 103 mmol/L (98-107); Globulin 3.2 g/dL (1.3-4.6); Glomerular Filtration Rate 109.6 mL/min (90-130); Glucose 103 mg/dL (65-115); NT Pro B Type Natriuretic Pept 341 pg/mL (0-125); Osmolality Calculated 290 mOsm/kg (285-295); Potassium 3.7 mmol/L (3.5-5.1); Sodium 141 mmol/L (136-145); Total Bilirubin 0.3 mg/dL (0.15-1.2)
[2022-02-11] MEDS: iohexol 350 mg/mL 100 mL Btl 95 ML IV (05:58)
--- NOTE | 2022-02-11 06:28 | ED_ITS ---
Documented by User: Medardo Mcnair DO 02/11/22 23:24 HPI - Chest Pain General: Chief Complaint: Chest Pain Stated Complaint: Chest Pains\N Time Seen by Provider: 02/11/22 04:45 Source: patient and family History of Present Illness: 41-year-old female who is postoperative from hysterectomy, and ovarian tumor removal on Saturday. She seemed to be doing well, but last night developed increasing epigastric type pain. She has a history of coronary disease. She is not overly short of breath. She denies fever. She is not vomiting. She is nauseated. Pain has seemed to worsen over the past few hours. complaint: other (Epigastric pain) Onset (ago): hour(s) Timing of current episode: constant, increasing and still present Prior episodes: No Onset: during rest Pain location: epigastric Pain radiation: back Quality: aching Relieving factors: nothing Exacerbating factors: movement Associated symptoms: Reports abdominal pain and nausea; Deny diaphoresis, dyspnea, fever(s), leg edema or vomiting Review of Systems Const: Denies: fever(s) or diaphoresis ENMT: Denies: throat pain Card: Reports: chest pain Resp: Denies: dyspnea GI: Reports: abdominal pain and nausea; Denies: vomiting : Denies: flank pain PFSH ED PFSH: Medical History Essential hypertension History of NE (myocardial infarction) Hyperlipidemia Surgical History S/P coronary artery stent placement Family History Other Hypertension Myocardial infarction PAD (peripheral artery disease) Social History Smoking and tobacco status: former smoker Alcohol intake: never Female Reproductive History: Date of last menstrual period: 02/05/20 Physical Exam Const: GENERAL APPEARANCE: cooperative, in distress (Mild) and ill appearing HENMT: COMMON NORMALS: normocephalic and atraumatic HEAD & SCALP: normocephalic and atraumatic Eye: COMMON NORMALS: Equal, round and reactive pupils present and EOMs intact bilaterally PUPIL: Yes Equal, round and reactive pupils present Neck/C-Spine: GENERAL: Yes trachea midline Chest: CHEST: Yes Symmetrical chest wall rise Resp: COMMON NORMALS: normal respiratory effort, No use of accessory muscles and clear to auscultation bilaterally AUSCULTATION: clear to auscultation bilaterally Cardio: COMMON NORMALS: regular rate and regular rhythm RATE: regular rate RHYTHM: regular rhythm GI: COMMON NORMALS: Soft to palpation PALPATION: Yes Soft to palpation, Yes Tenderness to palpation present (GI) (Epigastric worst, but diffuse) and Yes Guarding due to palpation present (GI) Extremity: COMMON NORMALS: no pedal edema Neuro: TONI COMA SCALE: document GCS findings Toni coma scale eye opening: Spontaneous Toni coma scale verbal response: Orientated [place] coma scale motor response: Obey commands [place] coma scale total score: 15 Psych: COMMON NORMALS: cooperative Course Vital Signs: Vital signs: Vital Signs Temperature 98.2 F 02/11/22 04:18 Pulse Rate 68 02/11/22 13:24 Respiratory Rate 18 02/11/22 13:24 Blood Pressure 138/88 02/11/22 13:24 Pulse Oximetry 98 02/11/22 13:24 Oxygen Delivery Me thod 02/11/22 04:18 MDM - Chest Pain Medical Decision Making 41-year-old female postop from hysterectomy/oophorectomy 5 days. She complains of epigastric and chest discomfort radiating into her back. She has a history of coronary disease. Her EKG shows sinus bradycardia, rate of 60. No acute ST changes. Intervals are normal and axis is normal. Her white blood cell count is 11.6. Her BMP is normal. Liver enzymes are normal. Hemoglobin is 11.8. Baseline troponin is 6. D-dimer was significantly elevated at 3.54. CTA of the chest is negative for PE or infiltrate. CT of the belly shows a fluid william ection in the pelvis that is heterogenous. This patient will be checked out pending second troponin and gynecology consultation to the next physician at shift change Lab Data : 02/11/22 04:42 02/11/22 04:42 Radiology Impressions Chest X-Ray 02/11/22 04:45 IMPRESSION: No chest radiographic evidence of acute cardiopulmonary disease. Chest/Abdomen/Pelvis CT 02/11/22 05:10 IMPRESSION: 1. No CTA evidence of pulmonary embolism, thoracic aortic aneurysm or thoracic aortic dissection. 2. Minimal dependent atelectasis with mild bilateral lower lobe posterior basilar atelectasis. No CT evidence of pneumonia. 3. Nonspecific enlarged mediastinal lymph nodes. IMPRESSION: Status post hysterectomy 6 days ago. Heterogeneous attenuation fluid seen in the posterior pelvis with some septations and denser regions. This region measures approximately 9 x 5.6 x 11.8 cm. This may represent a postsurgical fluid collection/evolving hematoma. Infection cannot be excluded. Recommend correlation with clinical findings. COMMENTS: Consistent with the [employer]'s Incidental Findings Committee white paper (J Am William Radiol 2018): Any incidental renal lesion less than 1 cm or classified as too small to characterize, or any incidental cystic renal lesion characterized as simple-appearing, is likely benign. No follow-up imaging is recommended for these lesions per consensus recommendations based on imaging criteria. Laboratory Results WBC 11.6 10^3/uL (4.0-10.0) H 02/11/22 04:42 RBC 4.04 10^6/uL (4.1-5.3) L 02/11/22 04:42 Hgb 11.8 g/dL (11.5-15.3) 02/11/22 04:42 Hct 35.9 % (37.0-47.0) L 02/11/22 04:42 MCV 88.9 fl (81-99) 02/11/22 04:42 MCH 29.2 pg (28.0-34.0) 02/11/22 04:42 MCHC 32.9 g/dL (30.0-36.0) 02/11/22 04:42 RDW 12.8 % (12.1-15.1) 02/11/22 04:42 Plt Count 376 10^3/cmm (130-400) 02/11/22 04:42 MPV 9.6 fL (7.4-10.4) 02/11/22 04:42 Neut % (Auto) 78.4 % 02/11/22 04:42 Lymph % (Auto) 14.2 % 02/11/22 04:42 [place]idan % (Auto) 5.7 % 02/11/22 04:42 Eos % (Auto) 1.1 % 02/11/22 04:42 Baso % (Auto) 0.2 % 02/11/22 04:42 Neut # (Auto) 9.13 10^3/uL (1.8-7.7) H 02/11/22 04:42 Lymph # (Auto) 1.7 10^3/uL (0.8-4.8) 02/11/22 04:42 [place]idan # (Auto) 0.7 10^3/uL (0.2-0.9) 02/11/22 04:42 Eos # (Auto) 0.1 10^3/uL (0.0-0.8) 02/11/22 04:42 Baso # (Auto) 0.0 10^3/uL (0.0-0.1) 02/11/22 04:42 Nucleated RBC % (auto) 0 % 02/11/22 04:42 Nucleated RBCs # 0.0 /100WBC 02/11/22 04:42 D-Dimer 3.54 ug/mIFEU (0-0.59) H 02/11/22 04:42 Sodium 141 mmol/L (136-145) 02/11/22 04:42 Potassium 3.7 mmol/L (3.5-5.1) 02/11/22 04:42 Chloride 103 mmol/L (98-107) 02/11/22 04:42 Carbon Dioxide 24 mmol/L (22-29) 02/11/22 04:42 Anion Gap 17.7 (5-19) 02/11/22 04:42 BUN 7 mg/dL (6-20) 02/11/22 04:42 Creatinine 0.6 mg/dL (0.5-0.9) 02/11/22 04:42 GFR Calculation 109.6 mL/min (90-130) 02/11/22 04:42 Glucose 103 mg/dL (65-115) 02/11/22 04:42 Calculated Osmolality 290 mOsm/kg (285-295) 02/11/22 04:42 Calcium 9.5 mg/dL (8.5-10.5) 02/11/22 04:42 Total Bilirubin 0.3 mg/dL (0.15-1.2) 02/11/22 04:42 AST 26 U/L (0-32) 02/11/22 04:42 ALT 28 U/L (0-33) 02/11/22 04:42 Alkaline Phosphatase 88 U/L (35-105) 02/11/22 04:42 Troponin T Baseline 6 ng/L (0-10) 02/11/22 04:42 Troponin T 120 Minute 6.00 ng/L (0-10) 02/11/22 06:39 Delta Troponin T 0 ABS# (0-10) 02/11/22 06:39 Troponin T Hi Sens 6Hr 6.00 ng/L (0-10) 02/11/22 11:42 Troponin T Hi Sens 6Hr Delta 0 ng/L (0-12) 02/11/22 11:42 NT-Pro-B Natriuret Pep 341 pg/mL (0-125) H 02/11/22 04:42 Total Protein 7.0 g/dL (6.6-8.7) 02/11/22 04:42 Albumin 3.8 g/dL (3.5-5.2) 02/11/22 04:42 Globulin 3.2 g/dL (1.3-4.6) 02/11/22 04:42 Discharge Plan Discharge Patient Disposition: Home Clinical Impression: Chest pain, Pelvic hematoma in female, H/O coronary atherosclerosis Condition: Stable Prescriptions: New ondansetron 4 mg tablet,disintegrating 4 mg PO Q6H PRN (Reason: nausea and vomiting) Qty: 14 0RF omeprazole 40 mg capsule,delayed release(DR/EC) 40 mg PO DAILY Qty: 30 0RF No Action aspirin [Adult Low Dose Aspirin] 81 mg tablet,delayed release (DR/EC) 81 mg PO DAILY cetirizine [Zyrtec] 10 mg tablet 10 mg PO DAILY PRN nitroglycerin [Nitrostat] 0.4 mg tablet, sublingual 0.4 mg SUBLINGUAL Q5M PRN (Reason: Chest Pain) Qty: 25 3RF valsartan 80 mg tablet 80 mg PO DAILY Qty: 90 3RF clopidogrel 75 mg tablet 75 mg PO DAILY Qty: 90 3RF Repatha SureClick 140 mg/mL pen injector 140 mg SUBCUT .Q2W Qty: 2 12RF ezetimibe [Zetia] 10 mg tablet 10 mg PO DAILY Qty: 90 3RF Discharge Orders: Discharge ED (Routine); Ordered 02/11/22 Ordered By: Sahra Lake Referrals: Krissy Graves MD [Primary Care Provider] - Patient Instructions: Chest Pain (ED), Opioid Safety Coding Level of Care Code ED Automatic Riveting Machine Operator for Chg Fwd Exam Comprehensive Documented by User: Sahra Lake MD 02/11/22 12:17 HPI - Chest Pain General: Chief Complaint: Chest Pain Stated Complaint: Chest Pains\N Time Seen by Provider: 02[facility]22 [facility]: Medical History Essential hypertension History of NE (myocardial infarction) Hyperlipidemia Surgical History S/P coronary artery stent placement Family History Other Hypertension Myocardial infarction PAD (peripheral artery disease) Social History Smoking and tobacco status: former smoker Alcohol intake: never Physical Exam Neuro: TONI COMA SCALE: document GCS findings Toni coma scale total score: 15 Course Vital Signs: Vital signs: Vital Signs Temperature 98.2 F 02/11/22 04:18 Pulse Rate 68 02/11/22 13:24 Respiratory Rate 18 02/11/22 13:24 Blood Pressure 138/88 02/11/22 13:24 Pulse Oximetry 98 02/11/22 13:24 Oxygen Delivery Me thod 02/11/22 04:18 MDM - Chest Pain Medical Decision Making 41-year-old female postop from hysterectomy/oophorectomy 5 days. She complains of epigastric and chest discomfort radiating into her back. She has a history of coronary disease. Her EKG shows sinus bradycardia, rate of 60. No acute ST changes. Intervals are normal and axis is normal. Her white blood cell count is 11.6. Her BMP is normal. Liver enzymes are normal. Hemoglobin is 11.8. Baseline troponin is 6. D-dimer was significantly elevated at 3.54. CTA of the chest is negative for PE or infiltrate. CT of the belly shows a fluid collection in the pelvis that is heterogenous. This patient will be checked out pending second troponin and gynecology consultation to the next physician at shift change Sahra Lake MD - I assumed care of this patient at shift change. She is here with chest pain that started at around 1:30 am. She is pain free now. She has a history of NE and says this feels similar. She also had a hyst/ooph on Saturday with Dr. Cedeno at [facility] for an ovarian tumor but has been doing fairly well following the surgery. She is moving her bowels and eating. She is able to get up and around but with some discomfort. She is having a lot of gas. Her initial troponin and EKG are normal. CTA chest and abd/pelvis show a fluid collection in the pelvis - 9 X 12 cm. I discussed this with ASHWIN Saul honing machine operator production for Dr. Cedeno. Given the patient's benign clinical appearance, in terms of her surgery and abdominal exam - we will watch this and not undertake any intervention at this time. In terms of her chest pain - second troponin pendin g. Second EKG may show some subtle changes from the first of uncertain clinical significance. 2 and 6 hour troponins also negative. Patient feels ok to go home. She will follow up with [facility] in [place] and with her PCP to discuss other work up of her chest pain. Return precautions discussed and understood. Lab Data : 02/11/22 04:42 02/11/22 04:42 Radiology Impressions Chest X-Ray 02/11/22 04:45 IMPRESSION: No chest radiographic evidence of acute cardiopulmonary disease. Chest/Abdomen/Pelvis CT 02/11/22 05:10 IMPRESSION: 1. No CTA evidence of pulmonary embolism, thoracic aortic aneurysm or thoracic aortic dissection. 2. Minimal dependent atelectasis with mild bilateral lower lobe posterior basilar atelectasis. No CT evidence of pneumonia. 3. Nonspecific enlarged mediastinal lymph nodes.
--- NOTE | 2022-02-11 06:35 | ECG_ITS ---
[facility] Test Date: 2022-02-11 Pat Name: Juliane Ma Department: Room: Gender: Female Zoo Veterinarian: : 1980 Requested By: Medardo Robledo Order Number: [id number] Tyesha MD: Truong Jensen M.D. Measurements Intervals [place] Rate: 64 P: 11 NE: 159 QRS: 77 QRSD: 84 T: 66 QT: 394 QTc: 408 Interpretive Statements SINUS RHYTHM Compared to ECG 02/18/2020 11:02:26 No significant changes Electronically Signed On 02-11-2022 8:27:49 CDT by Truong Jensen M.D. [email or web address] [email or web address] davis community hospitalTV Talk Networkcleveland clinic [id number]
[2022-02-11] MEDS: famotidine 20 mg/2 mL INJ 40 MG IVP (07:05)
--- NOTE | 2022-02-11 07:09 | PC.NURSE ---
pt resting in bed, visitor at bedside. IV in place to RAC, flushes easily with good blood return. Pt reports she is currently pain free and denies nausea. Pt drowsy, answers questions appropriately. lung sounds clear bilat. respirations even and unlabored. pt denies needs at this time.
[2022-02-11 09:10] LABS: Troponin 5 2HR Delta 0 ABS# (0-10)
--- NOTE | 2022-02-11 10:45 | ECG_ITS ---
[facility] Test Date: 2022-02-11 Pat Name: Juliane Ma Department: Room: Gender: Female Manager Corporate Strategy: : 1980 Requested By: Medardo Robledo Order Number: [id number] Tyesha MD: Truong Jensen M.D. Measurements Intervals [place] Rate: 59 P: 7 AL: 162 QRS: 64 QRSD: 83 T: 53 QT: 388 QTc: 387 Interpretive Statements SINUS BRADYCARDIA Early repolarization Compared to ECG 02/11/2022 06:35:12 Sinus rhythm no longer present Electronically Signed On 02-11-2022 18:14:37 CDT by Truong Jensen M.D. [email or web address].ProofPilotpremier health upper valley medical centerAlice Technologies/store/[id number]
[2022-02-11 15:58] LABS: Troponin 5 6HR Delta 0 ng/L (0-12)
== END 2022-02-11 13:28 | disposition home or self-care (01) ==
PROVIDERS: Emergency Medicine; Emergency Provider Emergency Medicine; PCP Family Medicine
DX: R07.9 Chest pain, unspecified (principal); N94.89 Other specified conditions associated with female genital organs and menstrual cycle; I25.10 Atherosclerotic heart disease of native coronary artery without angina pectoris; Z79.82 Long term (current) use of aspirin; Z79.02 Long term (current) use of antithrombotics/antiplatelets; I10 Essential (primary) hypertension; I25.2 Old myocardial infarction; E78.5 Hyperlipidemia, unspecified; Z87.891 Personal history of nicotine dependence
CPT/HCPCS: 71045; 71275; 74177; 80053; 83880; 84484; 85025; 85378; 93005; 96374; 96375; 96376; 99285; J2270; J2405; J3490; Q9967

== ENCOUNTER → 2023-05-21 14:59 | Outpatient (BNVA) | payer BC, SELFPAY | PROVIDERS: PCP Family Medicine; Visit Provider Internal Medicine Cardiovascular Disease | DX: E78.5 Hyperlipidemia, unspecified (principal); I10 Essential (primary) hypertension; I25.2 Old myocardial infarction | CPT/HCPCS: 36415; 80053; 80061; 83721; 85025 ==

== ENCOUNTER 2024-03-25 09:42 | Outpatient (CLI) | payer BC, SELFPAY ==
--- NOTE | 2024-03-25 | ECG_ITS ---
[facility] Test Date: 2024-03-25 Pat Name: Juliane Ma Department: Room: Gender: Female Terminal Clerk: : 1980 Requested By: Junior De Jesus Order Number: [id number] Tyesha MD: Junior De Jesus M.D. Interpretive Statements Exercise sestamibi stress test EXERCISE DATA: The patient was exercised by Sha protocol. Baseline heart rate was 72beats per minute. Baseline blood pressure was 133/93millimeters of mercury. Maximal predicted heart rate [id number] beats per minute. Maximum heart rate achieved was 162 which was 92% of the maximum predicted heart rate. Maximum blood pressure was 164/74 millimeters of mercury. Total exercise time was 9 minutes. Maximum METs achieved was 10.2. The reason for ending the test was completion of protocol. The patient complained of Shortness of breath during the stress test, which then resolved at the end of the test. ELECTROCARDIOGRAM: BASELINE: Showed sinus rhythm, normal axis, no significant ST-T changes at the baseline noted. [] EXERCISE: At the peak exercise level, [] No significant ST-T changes suggestive of ischemia noted. [] RECOVERY: During the recovery period, heart rate dropped appropriately. No significant ST-T changes in the recovery suggestive of ischemia noted. [] CONCLUSION: 1. Exercise capacity is good 2. Heart rate response was appropriate. 3. Blood pressure response was appropriate. 4. Symptoms not suggestive of ischemia. 5. Electrocardiogram portion of the stress test was not suggestive of ischemia. 6. Nuclear scan will be documented separately. Electronically Signed On 03-27-2024 20:03:32 CDT by Junior De Jesus M.D. [id number]
[2024-03-25 09:45] VITALS: BMI 27.4
--- NOTE | 2024-03-25 09:49 | NMCV_ITS ---
NM spencer perf SPECT r/s* [id number] Juliane Ma Age: 44 Gender: F : 1980 Exam Date: 03/25/2024 09:49 Ordering Phys: Junior De Jesus M.D ([email or web address]) Technologist: DAYA Antoine Exam Location: [facility] Indications: cp STRESS TEST Please see separate stress [facility] for full findings IMAGE PROTOCOL Rest/Stress 1 Exercise Day Radiopharmaceutical Dose (mCi) Administration Site Administered by Rest: Tc-99m 10.7 IV DAYA Antoine Sestamibi Stress:Tc-99m 33 IV DAYA Wheeler Sestamiasim Rest: 25-Mar-2024 60 Discovery 630 Stress: 25-Mar-2024 60 Discovery 630 Radiopharmaceutical was injected at 92 % maximum heart rate. Images obtained in supine and prone position. SPECT RESULTS Technical Quality: Good Raw Data Analysis: Normal Image Corrections: No attenuation or motion correction applied Summed Stress Score: 1 Summed Rest Score: 0 Summed Difference Score: 1 PERFUSION FINDINGS SPECT images demonstrate homogeneous tracer distribution throughout the myocardium. FUNCTIONAL RESULTS (calculated via Gated SPECT) Stress Image LV EF (%): 74 Stress EDV (mL):82 TID: 0.84 Stress ESV (mL):21 FUNCTIONAL FINDINGS: There is normal left ventricular systolic function. IMPRESSIONS Myocardial perfusion imaging is normal. Raciel El MD (Electronically Signed) Final Date: 25 March 2024 12:59 S
[2024-03-25 12:47] VITALS: BP 152/84; PULSE 98
== END 2024-03-25 09:43 | disposition home or self-care (01) ==
PROVIDERS: PCP Family Medicine; Visit Provider Internal Medicine
DX: R07.9 Chest pain, unspecified (principal)
CPT/HCPCS: 36415; 78452; 93017; A9500

== ENCOUNTER 2025-04-30 07:33 | Outpatient (CLI) | payer BC, SELFPAY ==
[2025-04-30 09:30] LABS: Cholesterol 95 mg/dL (0-200); HDL Cholesterol 54 mg/dL (60-100); Triglycerides 89 mg/dL (0-150)
== END 2025-04-30 07:34 | disposition home or self-care (01) ==
PROVIDERS: PCP Family Medicine; Visit Provider Internal Medicine
DX: E78.49 Other hyperlipidemia (principal)
CPT/HCPCS: 36415; 80061